=== PATIENT | female | born 1960 | race Caucasian/White ===

== ENCOUNTER 2018-02-08 09:18 | Emergency (ER) | payer MEDICARE, BC | END 2018-02-08 10:53 | disposition home or self-care (01) | LOC: E/R 09:18 | DX: J06.9 Acute upper respiratory infection, unspecified (principal); R40.2252 Coma scale, best verbal response, oriented, at arrival to emergency department; F17.210 Nicotine dependence, cigarettes, uncomplicated; R40.2142 Coma scale, eyes open, spontaneous, at arrival to emergency department; R40.2362 Coma scale, best motor response, obeys commands, at arrival to emergency department; I25.10 Atherosclerotic heart disease of native coronary artery without angina pectoris | CPT/HCPCS: 71045; 93005; 99284-25 ==